=== PATIENT | male | born 1950 | race Caucasian/White ===

== ENCOUNTER → 2016-08-04 | Outpatient (REF) | LOC: LAB 11:51 | DX: E11.9 Type 2 diabetes mellitus without complications (principal) ==

== ENCOUNTER → 2016-09-10 | Outpatient (REF) | LOC: LAB 11:46 | PROVIDERS: ATTEND Internal Medicine Sleep Medicine | DX: J40 Bronchitis, not specified as acute or chronic (principal) ==

== ENCOUNTER → 2016-09-23 | Outpatient (CLI) | payer BC | LOC: LAB 11:40 → EDSTATUS 13:53 → LAB 13:55 | PROVIDERS: ATTEND Internal Medicine Sleep Medicine | DX: Z01.818 Encounter for other preprocedural examination (principal); R05 Cough | CPT/HCPCS: 36415; 85002 ==

== ENCOUNTER → 2016-12-03 | Outpatient (REF) | LOC: LAB 10:47 | DX: E11.9 Type 2 diabetes mellitus without complications (principal) ==